=== PATIENT | female | born 1955 | race Caucasian/White ===

== ENCOUNTER 2018-08-05 09:03 | Emergency (ER) | payer BC ==
[2018-08-05] MEDS ORDERED: 0.9 % SODIUM CHLORIDE 1,000 ML BAG IV ONE (09:33)
--- NOTE | 2018-08-05 09:39 | Emergency Department Record ---
History of Present Illness - General Chief complaint: Weakness Stated complaint: "FEELS FUNNY" Time Seen by Provider: 08/05/18 09:23 Source: Patient, Family Mode of Arrival: Ambulatory Limitations: No limitations - History of Present Illness Initial comments: 62 female presents with a feeling of weakness and shaky since about 8am. She first awoke at 6:30am feeling normal. No headaches, blurry or altered vision, no speech or hearing changes. No dizziness. She felt tired. No swallowing changes. No chest pain, shortness of breath or abdominal pain. No dysuria. No pain anywhere. She had a vague feeling like she could possibly pass out. She walked throughout her home without limitation or difficulty. No confusion. She did change her diet a month ago and stopped drinking alcohol. She did have beer last night with friends. She had an ablation in the past for SVT. No feeling of heart racing. PCP is Kv[facility]. She does not follow with a puller through. MD Complaint: Generalized weakness Onset/Timin -: Minutes(s) Location: Generalized Severity: Moderate Quality: Other Consistency: Constant Improves with: None Worsens with: None Context: Other Associated Symptoms: Denies other symptoms - Shannan Coma Scale Eye Response: (4) Open spontaneously Motor Response: (6) Obeys commands Verbal Response: (5) Oriented Shannan Total: 15 - Related Data Home Medications Medication Instructions Recorded Confirmed Last Taken Magnesium Glycinate [Mag Glycinate] 200 mg PO BID 08/05/18 08/05/18 08/05/18 Previous Rx's Medication Instructions Recorded Nitrofurantoin Monohyd/M-Cryst 100 mg PO BID #14 capsule 08/05/18 [Macrobid 100 mg Capsule] Allergies Allergy/AdvReac Type Severity Reaction Status Date / Time erythromycin base Allergy HIVES Verified 03/21/16 14:20 [Erythromycin Base] Penicillins Allergy HIVES Verified 03/21/16 14:20 gabapentin AdvReac PT UNSURE Verified 03/21/16 14:20 OF REACTION Travel Screening - Travel/Exposure Within Last 30 Days Have you traveled within the last 30 days?: Yes Location Detail:: [place] - Travel/Exposure Within Last Year Have you traveled outside the [place] in the last year?: No - Additonal Travel Details Have you been exposed to anyone with a communicable illness?: No - Travel Symptoms Symptom Screening: None Review of Systems Constitutional: Reports: Malaise, Weakness. Denies: Chills Eyes: Denies: Eye discharge, Eye pain, Photophobia, Vision change ENT: Denies: Congestion, Throat pain Respiratory: Denies: Cough, Dyspnea, Hemoptysis, Stridor, Wheezes Cardiovascular: Denies: Chest pain, Palpitations, Syncope Endocrine: Reports: Fatigue Gastrointestinal: Denies: Abdominal pain, Diarrhea, Nausea, Vomiting Genitourinary: Denies: Dysuria, Retention, Urgency Musculoskeletal: Denies: Arthralgia, Back pain, Myalgia, Neck pain Skin: Denies: Bruising, Change in color, Rash Neurological: Reports: Weakness (generalized). Denies: Abnormal gait, Confusion , Headache, Numbness, Paresthesias, Seizure, Tingling, Tremors, Vertigo Psychiatric: Reports: Anxiety Hematological/Lymphatic: Denies: Anemia, Blood Clots, Easy bleeding, Easy bruising, Swollen glands Past Medical History - SOCIAL HISTORY Smoking Status: Former smoker Alcohol Use: Occasional Drug Use: Rare Drug Use Detail:: Marijuana - RESPIRATORY Hx Respiratory Disorders: Yes Hx Bronchitis: Yes Hx COPD: Yes (well controlled with inhaler) Comment:: allergies pt get allergy shots 1x's wkly - CARDIOVASCULAR Hx Cardio Disorders: Yes Hx Irregular Heartbeat: Yes (hx of SVT had ablation approx. 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, left - GI Hx GI Disorders: Yes Hx of Polyps: Yes (colon) - Hx Genitourinary Disorders: No Comment:: post hyst - ENDOCRINE Hx Endocrine Disorders: Yes Hx Thyroid Disease: Yes - MUSCULOSKELETAL Hx Musculoskeletal Disorders: Yes Hx Arthritis: Yes Comment:: numbness and tingling upper extremeties from CTS - PSYCH Hx Psych Problems: No - HEMATOLOGY/ONCOLOGY Hx Hematology/Oncology Disorders: Yes Hx Anemia: Yes Family Medical History Any Significant Family History?: No Hx Cancer: Mother Hx Heart Disease: Father, Grandparents Physical Exam - General General Appearance: Alert, Oriented x3, Cooperative, No acute distress Limitations: No limitations - Head Head exam: Atraumatic, Normocephalic, Normal inspection - Eye Eye exam: Normal appearance, PERRL, EOMI. negative: Conjunctival injection, Nystagmus, Periorbital swelling, Scleral icterus - ENT ENT exam: Normal exam, Mucous membranes moist, Normal external ear exam, Normal orophraynx, TM's normal bilaterally Ear exam: Normal external inspection. negative: External canal tenderness Nasal Exam: Normal inspection. negative: Discharge, Sinus tenderness Mouth exam: Normal external inspection, Tongue normal Teeth exam: Normal inspection. negative: Dental caries Throat exam: Normal inspection. negative: Tonsillar erythema, Tonsillar exudate - Neck Neck exam: Normal inspection, Full ROM. negative: Lymphadenopathy, Tenderness, Thyromegaly - Respiratory Respiratory exam: Normal lung sounds bilaterally. negative: Accessory muscle use, Decreased breath sounds, Prolonged expiratory, Respiratory distress, Rhonchi, Stridor, Wheezes - Cardiovascular Cardiovascular Exam: Regular rate, Normal rhythm, Normal heart sounds. negative : Diastolic murmur, Systolic murmur, Tachycardia Peripheral Pulses: 2+: Radial (R), Radial (L) - GI/Abdominal GI/Abdominal exam: Soft. negative: Tenderness - Rectal Rectal exam: Deferred - exam: Deferred - Extremities Extremities exam: Normal inspection - Back Back exam: Denies: CVA tenderness (R), CVA tenderness (L) - Neurological Neurological exam: Alert, Oriented X3 - Psychiatric Psychiatric exam: Normal affect, Normal mood - Skin Skin exam: Dry, Intact, Normal color, Warm Course Vital Signs 08/05/18 09:12 Temperature 110 F H Pulse Rate 106 H Respiratory 18 Rate Blood Pressure 144/79 Pulse Ox 100 - Reevaluation(s) Reevaluation #1: EKG EKG #1: 09:18 Rate: 106 Rhythm: sinus tach Wallace: normal Intervals: normal ST segments: normal Prior: 01/03/16 No changes 08/05/18 09:40 08/05/18 10:24 The CBC was reviewed No acute changes HR 97 improved. 08/05/18 10:56 The UA was reviewed It was N+, WBC's + with +4 Bacteria. Culture ordered and the patient treated We discussed the results, reasons for immediate return in the next 1-2 days and close follow up with her PCP 08/05/18 11:01 The TSH was discussed with the patient as well. She is to contact her doctor to discuss her mediation dosing and follow up Medical Decision Making - Lab Data Result diagrams: 08/05/18 09:54 08/05/18 09:54 Disposition Disposition: Discharge Clinical Impression: Weakness, Urinary tract infection Disposition: Home, Self-Care Condition: (1) Good Instructions: Urinary Tract Infection in Women (ED), Weakness (ED) Additional Instructions: Call your doctor for the next available follow up appointment Return to the ER for a recheck if worse, any new concerns or questions Take the prescriptions provided as directed Review this ER visit and the tests performed with your family doctor You have a culture of the urine that will be available in about 3 days Prescriptions: Nitrofurantoin Monohyd/M-Cryst [Macrobid 100 mg Capsule] 100 mg PO BID #14 capsule Referrals: LA TORO M.D. [MEDICAL DOCTOR] - [facility] [Provider Group] Forms: Patient Portal Access Time of Disposition: 11:00 Quality - Quality Measures Quality Measures: N/A - Blood Pressure Screening Does Patient Have Any of the Following: No Blood Pressure Classification: Hypertensive Reading Systolic Measurement: 148 Diastolic Measurement: 79 Screening for High Blood Pressure: < Pre-Hypertensive BP, F/U Documented > [ [id number]] Pre-Hypertensive Follow-up Interventions: Referral to alternative/primary care provider.
[2018-08-05 10:15] LABS: BASO % 0.7 % (0-6); EOS % 0.9 % (0-6); GRAN % 65.9 % (47-80); HEMATOCRIT 43.5 % (35.0-47.0); HEMOGLOBIN 14.8 gm/dl (11.6-16.0); LYMPH % 23.7 % (16-45); MEAN CELL VOLUME 92.9 fl (81-97); MEAN CORPUSCULAR HEMOGLOBIN 31.6 pg (27-33); MONO % 8.8 % (0-9); PLATELET COUNT 357 K/uL (130-400); RED BLOOD COUNT 4.68 M/uL (3.80-5.40); RED CELL DISTRIBUTION WIDTH 12.7 % (11.5-14.5); URINE APPEARANCE CLEAR; URINE BILIRUBIN NEGATIVE (NEGATIVE); URINE BLOOD NEGATIVE (NEGATIVE); URINE COLOR YELLOW; URINE GLUCOSE (UA) NEGATIVE (NEGATIVE); URINE KETONE TRACE (NEGATIVE); URINE LEUKOCYTE ESTERASE NEGATIVE (NEGATIVE); URINE NITRITE POSITIVE (NEGATIVE); URINE PROTEIN NEGATIVE (NEGATIVE); WHITE BLOOD COUNT W/O DIFF 5.6 K/uL (4.2-12.2)
[2018-08-05 10:34] LABS: BLOOD UREA NITROGEN 15 mg/dL (8-23); CREATININE 0.6 mg/dL (0.5-0.9); EST GLOMERULAR FILTRATION RATE > 60 mL/min
[2018-08-05 10:35] LABS: TOTAL PROTEIN 7.3 g/dL (6.6-8.7); URINE BACTERIA 4+; URINE RBC 0 - 2 (NONE SEEN)
[2018-08-05 10:37] LABS: GLUCOSE,RANDOM 105 mg/dL (74-109)
[2018-08-05 10:39] LABS: ALBUMIN 4.5 g/dL (4.0-5.0); ALT/SGPT 74 U/L (<33); AST/SGOT 55 U/L (10.0-35.0)
[2018-08-05 10:40] LABS: ALB/GLOB RATIO 1.6 (1.1-1.8); ALKALINE PHOSPHATASE 112 U/L (35-104)
[2018-08-05 10:50] LABS: THYROID STIMULATING HORMONE 0.23 uIU/mL (0.270-4.20)
[2018-08-05] MEDS ORDERED: NITROFURANTOIN MONO 100 MG CAPSULE PO ONE (10:55)
== END 2018-08-05 11:17 | disposition home or self-care (01) ==
LOC: ER 09:03
DX: R53.1 Weakness (principal); N39.0 Urinary tract infection, site not specified; R53.83 Other fatigue; J44.9 Chronic obstructive pulmonary disease, unspecified; Z87.891 Personal history of nicotine dependence
CPT/HCPCS: 80053; 81001; 84443; 85025; 93005; 93010; 99284; J7030